=== PATIENT | female | born 1960 | race Caucasian/White ===

== ENCOUNTER 2016-08-19 14:32 | Emergency (ER) | payer OTHER, BC ==
[2016-08-19] MEDS ORDERED: Sodium Chloride 0.9% 10 ML Syringe FLUSH PRN (14:46)
[2016-08-19] MEDS ORDERED: Morphine 4 MG/ML Syringe IVPUSH ONE ×2 (14:46→15:31)
--- NOTE | 2016-08-19 14:47 | EDM.PDOC ---
ED HPI GENERAL MEDICAL PROBLEM - General Chief Complaint: Upper Extremity Injury/Pain Stated Complaint: BY AMBULANCE Time Seen by Provider: 08/19/16 14:43 Source of Information: Reports: Patient History Limitations: Reports: No Limitations - History of Present Illness INITIAL COMMENTS - FREE TEXT/NARRATIVE: States that she fell off a ladder today about 4-5 feet high and landed on her left shoulder. denies LOC. c/o only of left shoulder pain. Onset: Today Location: Reports: Upper Extremity, Left Quality: Reports: Ache, Throbbing Severity: Moderate Improves with: Reports: Immobilization Worsens with: Reports: Movement Context: Reports: Activity Associated Symptoms: Reports: No Other Symptoms Left Shoulder Pain Score (Numeric/FACES): 8 - Related Data Allergies Allergy/AdvReac Type Severity Reaction Status Date / Time No Known Allergies Allergy Verified 08/19/16 14:35 Home Meds: Home Meds Levothyroxine [Synthroid] 50 mcg PO ACBREAKFAST 08/19/16 [History] Review of Systems - Review of Systems Review Of Systems: See Below Musculoskeletal: Reports: Shoulder Pain ED EXAM, GENERAL - Physical Exam Exam: See Below Exam Limited By: No Limitations General Appearance: Alert, WD/WN, No Apparent Distress Eye Exam: Bilateral Eye: PERRL Head: Atraumatic, Normocephalic Neck: Normal Inspection, Supple, Non-Tender, Full Range of Motion Respiratory/Chest: No Respiratory Distress, Lungs Clear, Normal Breath Sounds, No Accessory Muscle Use, Chest Non-Tender Cardiovascular: Normal Peripheral Pulses, Regular Rate, Rhythm, No Edema, No Gallop, No JVD, No Murmur, No Rub Extremities: Normal Inspection, Normal Capillary Refill, Arm Pain, Limited Range of Motion Neurological: Alert, Oriented, CN II-XII Intact, Normal Cognition, Normal Gait, Normal Reflexes, No Motor/Sensory Deficits Course - Vital Signs Last Recorded V/S: Last Vital Signs Temp 98.0 F 08/19/16 18:32 Pulse 90 08/19/16 18:32 Resp 18 08/19/16 18:32 BP 117/66 08/19/16 18:32 Pulse Ox 99 08/19/16 18:32 - Orders/Labs/Meds Orders: Active Orders 24 hr Category Date Time Status Splinting [RC] ASDIRECTED Care 08/19/16 17:32 Active Humerus Lt [CR] Urgent Exams 08/19/16 16:30 Ordered Sodium Chloride 0.9% [Saline Flush] Med 08/19/16 14:46 Active 10 ml FLUSH ASDIRECTED PRN Saline Lock Insert [OM.PC] Stat Oth 08/19/16 14:46 Ordered Medication Orders Sodium Chloride (Saline Flush) 10 ml FLUSH ASDIRECTED PRN PRN Reason: Keep Vein Open Last Admin: 08/19/16 14:55 Dose: 10 ml Labs: Laboratory Tests 08/19/16 Range/Units 18:29 POC Glucose 135 H (70-105) mg/dl Meds: Medications Generic Name Dose Route Start Last Admin Trade Name Freq PRN Reason Stop Dose Admin Sodium Chloride 10 ml 08/19/16 14:46 08/19/16 14:55 Saline Flush FLUSH 10 ml ASDIRECTED PRN Administration Keep Vein Open Discontinued Medications Generic Name Dose Route Start Last Admin Trade Name Freq PRN Reason Stop Dose Admin Hydromorphone HCl 1 mg 08/19/16 16:30 08/19/16 16:35 Dilaudid IVPUSH 08/19/16 16:31 1 mg ONETIME ONE Administration Hydromorphone HCl 1 mg 08/19/16 17:53 08/19/16 18:02 Dilaudid IVPUSH 08/19/16 17:54 1 mg ONETIME ONE Administration Ketorolac Tromethamine 30 mg 08/19/16 17:24 08/19/16 17:29 Toradol IVPUSH 08/19/16 17:25 30 mg ONETIME ONE Administration Morphine Sulfate 4 mg 08/19/16 14:46 08/19/16 14:56 Morphine IVPUSH 08/19/16 14:47 4 mg ONETIME ONE Administration Morphine Sulfate 4 mg 08/19/16 15:31 08/19/16 16:04 Morphine IVPUSH 08/19/16 15:32 4 mg ONETIME ONE Administration Ondansetron HCl 4 mg 08/19/16 15:31 08/19/16 16:04 Zofran IV 08/19/16 15:32 4 mg ONETIME ONE Administration - Radiology Interpretation Free Text/Narrative:: left Humerus shaft fracture - Re-Assessments/Exams Free Text/Narrative Re-Assessment/Exam: 08/19/16 15:53 Called to [facility], orthopedic evaluating films. Will return call shortly. 08/19/16 17:[address] Rubi, [facility] who states that he would like multiple views of the shoulder and humerus to determine if shoulder was dislocated. Wants pt to come to clinic on Friday for followup between 8-11 am. Wants her to remain NPO. Recommends placing patient in sling that is not tight. 08/19/16 18:26 Pt placed in sling per RN, neuro intact. Diaphoretic upon assessment and states that she is somewhat light headed. Will check blood glucose, pt states that she has not eaten since 929 this am 08/19/16 18:49 pt states that she is very sleepy but in not as lightheaded. Denies pain. Departure - Departure Time of Disposition: 18:50 Disposition: Home, Self-Care 01 Condition: Good Clinical Impression: Fracture of humerus Qualifiers: Encounter type: initial encounter Humerus Location: shaft Fracture type: closed Fracture morphology: spiral Fracture alignment: nondisplaced Laterality: left Qualified Code(s): S42.345A - Nondisplaced spiral fracture of shaft of humerus, left arm, initial encounter for closed fracture - Discharge Information Instructions: Humerus Fracture Treated With Immobilization, [id number] Referrals: PCP,None [Primary Care Provider] - Forms: ED Department Discharge Additional Instructions: Continue sling until follow up, keep it loose to decrease impaction of fractured bone. Go to [facility] on Friday between 8- [address] Rubi call [phone] for directions to clinic. Do not eat anything prior to going to clinic. Take the medication as needed for pain. - My Orders Last 24 Hours: My Active Orders 08/19/16 14:46 Sodium Chloride 0.9% [Saline Flush] 10 ml FLUSH ASDIRECTED PRN Saline Lock Insert [OM.PC] Stat 08/19/16 16:30 Humerus Lt [CR] Urgent 08/19/16 17:32 Splinting [RC] ASDIRECTED - Assessment/Plan Last 24 Hours: My Active Orders 08/19/16 14:46 Sodium Chloride 0.9% [Saline Flush] 10 ml FLUSH ASDIRECTED PRN Saline Lock Insert [OM.PC] Stat 08/19/16 16:30 Humerus Lt [CR] Urgent 08/19/16 17:32 Splinting [RC] ASDIRECTED
--- NOTE | 2016-08-19 15:27 | CR ---
Clinical history: 56-year-old female left shoulder pain. Interpretation: Single AP film abnormal. Acute spiral fracture proximal diaphysis (shaft) left humerus, mildly impacted and angulated in this single AP projection. No distal long bone fracture and no sign of left shoulder or elbow joint dislocation. No foreign bod ies. Ipsilateral left lung field is clear.
[2016-08-19] MEDS ORDERED: Ondansetron 4 MG/2 ML SDV IV ONE (15:31)
[2016-08-19] MEDS ORDERED: HYDROmorphone 1 MG/ML Syringe IVPUSH ONE ×2 (16:30→17:53)
--- NOTE | 2016-08-19 17:13 | CR ---
Clinical history: 56-year-old female spiral fracture proximal left humerus. Additional lateral "Y" view demonstrates impaction and approximately 9-11 mm axillar offset shaft, a t the fracture site. No sign of pathologic skeletal lesion.
[2016-08-19] MEDS ORDERED: Ketorolac 30 MG/ML SDV IVPUSH ONE (17:24)
[2016-08-19 18:33] VITALS: BP 117/66
[2016-08-19] MEDS ORDERED: Acetaminophen/HYDROcodone 325-10 MG Tab ONE (18:58)
[2016-08-19] MEDS ORDERED: Acetaminophen/HYDROcodone 325-10 MG Tab PO ONE (18:58)
[2016-08-19] MEDS ORDERED: Metoclopramide 10 MG/2 ML SDV IM ONE (19:03)
== END 2016-08-19 19:33 | disposition home or self-care (01) ==
LOC: DL.ED 14:32
DX: S42.342A Displaced spiral fracture of shaft of humerus, left arm, initial encounter for closed fracture (principal); W11.XXXA Fall on and from ladder, initial encounter; Y92.9 Unspecified place or not applicable; Z79.899 Other long term (current) drug therapy; R42 Dizziness and giddiness
CPT/HCPCS: 73030; 73060; 82962; 96372; 96374; 96375; 96376; 99284; J1170; J1885; J2270; J2405; J2765; J7050; A9270-GY